=== PATIENT | male | born 1985 | race Caucasian/White ===

== ENCOUNTER 2020-09-27 12:04 | Outpatient (REF) | payer SELFPAY | END 2020-09-27 12:05 | disposition home or self-care (01) | LOC: HO.LAB 12:04 | PROVIDERS: Visit Provider Internal Medicine | DX: Z20.828 Contact with and (suspected) exposure to other viral communicable diseases (principal) | CPT/HCPCS: C9803; U0003 ==

== ENCOUNTER 2025-04-14 19:03 | Emergency (ER) | payer OTHER, SELFPAY ==
[2025-04-14 19:31] VITALS: BP 144/117; PULSE 112; RESP 16; TEMP 36.7; O2SAT 97; BMI 29.3
--- NOTE | 2025-04-14 19:31 | ED_ITS ---
HPI - Nausea/Vomiting/Diarrhea General Chief complaint: Nausea/Vomiting/Diarrhea Stated complaint: V/N for 5 days Time Seen by Provider: 04/14/25 21:15 Source: patient Mode of arrival: ambulatory Limitations: no limitations History of Present Illness ED Provider: HPI Narrative: Patient's history of cannabis abuse comes here for nausea vomiting for last 5 days unable to hold down any liquids or solids history of same 6 months ago has a diffuse abdominal pain no focal pain Related Data Allergies Allergy/AdvReac Type Severity Reaction Status Date / Time No Known Allergies Allergy Verified 04/14/25 19:32 Review of Systems 2 Review of Systems: Yes all other systems are reviewed and are negative PMFSH Social History Social History Smoked in Last 30 Days: Yes Use of substances other than those prescribed or required for medical reasons: No Advance Directives: No Advance Directives Information Provided: No Physical Exam 2 Vital Signs: Vital Signs: Last Vital Signs Temp 98.1 F 04/14/25 19:31 Pulse 112 H 04/14/25 19:31 Resp 16 04/14/25 19:31 BP 144/117 H 04/14/25 19:31 Pulse Ox 97 04/14/25 19:31 O2 Del Method Room Air 04/14/25 19:31 BMI result Body Mass Index 29.3 Appearance: Alert. Oriented X3. No acute distress. Eyes: PERRLA, No Nystagmus ENT: Pharynx normal. Oral Mucosa moist Neck: Normal inspection. Neck supple. CVS: Normal heart rate and rhythm. Pulses normal. Respiratory: No respiratory distress. Equal air entry bilateral, no wheezing/rales/rhonchi Abdomen: Soft and nontender. Bowel sounds are present, no mass palpable, no CVA tenderness Skin: Skin warm and dry. Normal skin color. Normal skin turgor. Extremities: No lower extremity edema. No calf tenderness Neuro: Oriented X 3. No motor deficit. No sensory deficit.No cerebellar signs , cranial nerves II-XII intact Course Course Course Narrative: This is a Rapid Medical Examination (RME) performed by Celia Sanchez PA-C in triage. Full HPI, ROS, assessment and treatment plan per primary provider in the Main ED. 39 yo male presents to the ER for evaluation of 5 days of nausea and vomiting, inability to tolerate any PO. Last BM 4 days ago. He reports diffuse abdominal pain. No fever, chills, urinary symptoms. Hx similar episodes 4 months ago. Reports daily marijuana use and he has been cutting down. Last vomiting episode was 2 hours ago. Plan: labs, antiemetics Medications Administered Discontinued Medications Generic Name Dose Route Start Last Admin Trade Name Jeanmarie PRN Reason Stop Dose Admin Sodium Chloride 1,000 mls @ 999 mls/hr 04/14/25 21:46 04/14/25 23:17 Ns IV 04/14/25 22:46 Infused .Q1H1M ONE Infusion Midazolam HCl 1 mg 04/14/25 21:46 04/14/25 22:16 Midazolam Hcl 2 Mg/2 Ml Vial IVPUSH 04/14/25 21:47 1 mg ONCE ONE Administration Prochlorperazine Edisylate 10 mg 04/14/25 21:46 04/14/25 22:15 Prochlorperazine Edisylate 10 Mg/2 Ml Vial IVPUSH 04/14/25 21:47 10 mg ONCE ONE Administration Medical Decision Making Medical Decision Making [facility] Narrative: Patient's cannabis use and nausea vomiting with similar episodes in the past received Compazine and Ativan feeling much better during stay in the ER taking p.o. fluids will discharge patient home, patient left the ER without discharge papers Lab Data 04/14/25 19:45 04/14/25 19:45 Labs: Lab Results 04/14/25 Range/Units 19:45 WBC 10.9 H (4.8-10.8) X10*3/uL RBC 5.35 (4.60-5.80) X10*6/uL Hgb 15.3 (14.0-18.0) g/dl Hct 44.9 (42.0-52.0) % MCV 83.9 (80.0-98.0) fL MCH 28.6 (27.0-33.0) pg MCHC 34.1 (31.0-36.0) g/dl RDW 12.8 (11.0-16.0) % Plt Count 276 (160-400) X10*3/uL MPV 10.7 (9.4-12.4) fL Immature Gran % (Auto) 0.4 (0.0-0.4) % Neut % (Auto) 62.6 (45-73) % Lymph % (Auto) 27.0 (20-40) % Nuckolls % (Auto) 9.6 (2-11) % Eos % (Auto) 0.1 (0-4) % Baso % (Auto) 0.3 (0-2) % Lymph # (Auto) 2.9 (1.2-4.9) X10*3/uL Nuckolls # (Auto) 1.0 (0.1-1.2) X10*3/uL Eos # (Auto) 0.0 (0.0-0.4) X10*3/uL Baso # (Auto) 0.0 (0.0-0.2) X10*3/uL Abs Immat Gran (auto) 0.04 H (0.00-0.03) X10*3/uL Absolute Neuts (auto) 6.8 (2.0-8.3) x10*3/uL Absolute Nucleated RBC 0.000 (0.0-0.012) X10*3/uL Nucleated RBC % (auto) 0.0 (0.0-0.2) /100WBC Sodium 142 (135-145) mmol/L Potassium 3.6 (3.3-5.1) mmol/L Chloride 106 (96-108) mmol/L Carbon Dioxide 26 (22-29) mmol/L Anion Gap 14 (12-20) BUN 20 H (9-16) mg/dL Creatinine 1.24 (0.5-1.4) mg/dL Estim Creat Clear Calc 90.5 Estimated GFR > 60 Random Glucose 113 (60-115) mg/dL Calcium 10.0 (8.4-10.2) mg/dL Magnesium 2.4 (1.6-2.6) mg/dL Total Bilirubin 0.6 (0.0-1.0) mg/dL Direct Bilirubin 0.2 (0.0-0.5) mg/dL AST 19 (5-37) U/L ALT 15 (0-40) U/L Alkaline Phosphatase 100 (39-117) U/L Total Protein 7.5 (6.5-8.0) g/dL Albumin 4.6 (3.5-5.0) g/dL Lipase 16 (8-78) U/L Discharge Plan Discharge Clinical Impression: Cannabis abuse with intoxication, Vomiting Patient Disposition: Home, Self-Care Instructions: Acute Nausea and Vomiting (DC), Cannabis Use Disorder (ED) Additional Instructions: Stop using cannabis Cause of vomiting is likely from cannabis use Discharge Date/Time: 04/15/25 00:33 Print Language: Tamazight
[2025-04-14 19:53] LABS: Basophils Percent Auto 0.3 % (0-2); Eosinophils Percent Auto 0.1 % (0-4); Hematocrit 44.9 % (42.0-52.0); Hemoglobin 15.3 g/dl (14.0-18.0); Imm Gran Abs Auto 0.04 X10*3/uL (0.00-0.03); Imm Gran Pct Auto 0.4 % (0.0-0.4); Lymphocytes Absolute Auto 2.9 X10*3/uL (1.2-4.9); MANUAL DIFF FLAG NO; Mean Corpuscular HGB Conc 34.1 g/dl (31.0-36.0); Mean Corpuscular Hemoglobin 28.6 pg (27.0-33.0); Mean Corpuscular Volume 83.9 fL (80.0-98.0); Mean Platelet Volume 10.7 fL (9.4-12.4); Monocytes Percent Auto 9.6 % (2-11); Neutrophils Absolute Auto 6.8 x10*3/uL (2.0-8.3); Neutrophils Percent Auto 62.6 % (45-73); Platelet Count 276 X10*3/uL (160-400); Red Blood Count 5.35 X10*6/uL (4.60-5.80); Red Cell Distribution Width 12.8 % (11.0-16.0); White Blood Count 10.9 X10*3/uL (4.8-10.8)
[2025-04-14 20:09] LABS: Alanine Aminotransferase 15 U/L (0-40); Albumin Level 4.6 g/dL (3.5-5.0); Alkaline Phosphatase 100 U/L (39-117); Anion Gap 14 (12-20); Aspartate Amino Transferase 19 U/L (5-37); Bilirubin Direct 0.2 mg/dL (0.0-0.5); Bilirubin Total 0.6 mg/dL (0.0-1.0); Blood Urea Nitrogen 20 mg/dL (9-16); Carbon Dioxide 26 mmol/L (22-29); Chloride 106 mmol/L (96-108); Creatinine Clr Calc Pharmacy 90.5; Estimated Glomerular Filt Rate > 60; Glucose Random 113 mg/dL (60-115); Lipase 16 U/L (8-78); Magnesium 2.4 mg/dL (1.6-2.6); Potassium 3.6 mmol/L (3.3-5.1); Sodium 142 mmol/L (135-145); Total Protein 7.5 g/dL (6.5-8.0)
[2025-04-14] MEDS: Prochlorperazine Edisylate 10 MG/2 ML VIAL IVPUSH (22:15)
[2025-04-14] MEDS: Midazolam HCl 2 MG/2 ML VIAL 1 MG IVPUSH (22:16)
[2025-04-14] MEDS: 0.9 % Sodium Chloride 1,000 ML 999 ML IV (22:16)
--- NOTE | 2025-04-15 00:20 | PC.NURSE ---
pt found attempting to leave department. stated he did not want to wait for d/c as it is taking too long. pt ripped off own iv. states tolerating po intake. ambulates with steady gait and left with partner. primary RN and MD made aware.
== END 2025-04-15 00:33 | disposition home or self-care (01) ==
PROVIDERS: Physician Assistant; Emergency Provider Internal Medicine; PCP Internal Medicine
DX: R11.2 Nausea with vomiting, unspecified (principal); F12.929 Cannabis use, unspecified with intoxication, unspecified; R10.2 Pelvic and perineal pain; Z79.899 Other long term (current) drug therapy
CPT/HCPCS: 36415; 80048; 80076; 83690; 83735; 85025; 96361; 96374; 96375; 99284; J0737; J2250